=== PATIENT | female | born 1960 ===

== ENCOUNTER 2023-05-07 15:10 | Emergency (ER) | payer OTHER, BC, MEDICARE ==
[2023-05-07 15:53] VITALS: BP 151/80; PULSE 101
== END 2023-05-07 16:25 | disposition home or self-care (01) ==
LOC: FB.ED 15:10
DX: S01.91XA Laceration without foreign body of unspecified part of head, initial encounter (principal); Z79.899 Other long term (current) drug therapy; W22.8XXA Striking against or struck by other objects, initial encounter; Y92.090 Kitchen in other non-institutional residence as the place of occurrence of the external cause
CPT/HCPCS: 12001; 99283